=== PATIENT | male | born 1995 | race Caucasian/White ===

== ENCOUNTER 2020-01-05 14:15 | Emergency (ER) | payer MEDICAID ==
[2020-01-05] MEDS ORDERED: Bacitracin Oint 1 GM U/D Packet TOP ONE (15:01)
--- NOTE | 2020-01-05 15:03 | EDM.PDOC ---
ED HPI GENERAL MEDICAL PROBLEM - General Chief Complaint: Bite:Animal, Insect Stated Complaint: TICK BITE Time Seen by Provider: 01/05/20 14:35 Source of Information: Reports: Patient, RN History Limitations: Reports: No Limitations - History of Present Illness INITIAL COMMENTS - FREE TEXT/NARRATIVE: Keven is a 24 yo male that comes to the ER for 3 separate tick bites and a dog bite. The ticks were found 3 days ago ( afternoon) and the dog bite was monday morning. The police were notified of the dog bite. He is unsure of the dog's vaccination status. The tick bites are located on lateral left knee, lateral left chest wall, and right upper back. He has cleaned them with soap and water and peroxide at home but he is concerned with the redness surrounding the bites. Onset: Gradual Onset Date: 01/02/20 Treatments HAT BLOCK BENCH HAND: Reports: Home Treatments - Related Data Allergies Allergy/AdvReac Type Severity Reaction Status Date / Time Sulfa (Sulfonamide Allergy Hives Verified 06/05/19 02:29 Antibiotics) Home Meds: Home Meds Doxycycline [Vibramycin] 100 mg PO BID 5 Days #10 cap 01/05/20 [Rx] Past Medical History - Past Health History Medical/Surgical History: Denies Medical/Surgical History - Infectious Disease History Infectious Disease History: Reports: Chicken Pox Social & Family History - Tobacco Use Smoking Status *Q: Current Every Day Smoker Years of Tobacco use: 8 Packs/Tins Daily: 0.5 - Caffeine Use Caffeine Use: Reports: Coffee - Recreational Drug Use Recreational Drug Use: No ED ROS GENERAL - Review of Systems Review Of Systems: See Below Constitutional: Reports: No Symptoms HEENT: Reports: No Symptoms Respiratory: Reports: No Symptoms Cardiovascular: Reports: No Symptoms Endocrine: Reports: No Symptoms GI/Abdominal: Reports: No Symptoms : Reports: No Symptoms Musculoskeletal: Reports: No Symptoms Skin: Reports: Other (3 tick bites and 1 dog bite) Neurological: Reports: No Symptoms Psychiatric: Reports: No Symptoms Hematologic/Lymphatic: Reports: No Symptoms Immunologic: Reports: No Symptoms ED EXAM, ANIMAL BITE - Physical Exam Exam: See Below Exam Limited By: No Limitations General Appearance: Alert, No Apparent Distress Respiratory/Chest: Lungs Clear, Normal Breath Sounds Cardiovascular: Regular Rate, Rhythm, No Murmur Back Exam: Normal Inspection Skin Exam: Normal Color, Other (tick bite #1- lateral left knee: 6mm black center surrounded by a 2.5cm erythematous round area. #2 tick bite- left lateral chest wall: 2.5cm x 1cm oval erythematous area with scabbed center. #3 tick bite- right upper back: 1x2 cm erythematous area with dark scabbed center. Dog bite to right lateral calf: 2 x 1.3 cm erythematous area with 2 black, scabbed puncture wounds in the center. ) Course - Vital Signs Last Recorded V/S: Last Vital Signs Temp 95.9 F L 01/05/20 14:39 Pulse 72 01/05/20 14:39 Resp 16 01/05/20 14:39 BP 128/106 H 01/05/20 14:39 Pulse Ox 97 01/05/20 14:39 - Orders/Labs/Meds Meds: Medications Discontinued Medications Generic Name Dose Route Start Last Admin Trade Name Freq PRN Reason Stop Dose Admin Bacitracin 1 dose 01/05/20 15:01 01/05/20 15:09 Bacitracin Oint 1 Gm TOP 01/05/20 15:02 1 dose ONETIME ONE Administration - Re-Assessments/Exams Free Text/Narrative Re-Assessment/Exam: 01/05/20 15:15 tick bites to chest wall and back were cleansed with alcohol and partial tick parts removed with splinter forceps. Bacitracin and dressing applied to both areas. Departure - Departure Time of Disposition: 14:56 Disposition: Home, Self-Care 01 Condition: Good Clinical Impression: Tick bite of back, Tick bite of left knee, Tick bite of left side of chest wall , Dog bite of right calf - Discharge Information *PRESCRIPTION DRUG MONITORING PROGRAM REVIEWED*: Not Applicable *COPY OF PRESCRIPTION DRUG MONITORING REPORT IN PATIENT AUDI: Not Applicable Prescriptions: Doxycycline [Vibramycin] 100 mg PO BID 5 Days #10 cap Instructions: Animal Bite, Adult, [id number], Tick Bite Information, Adult, [id number] Referrals: PCP,None [Primary Care Provider] - Forms: ED Department Discharge Additional Instructions: For the dog bite, follow up with the police to determine the dog's immunization status. Soak your right leg in soapy water twice a day and pat dry. Use a topical antibiotic ointment on dog bite wound. watch closely for signs of infection (increased redness, drainage, fever). For the ticks bites, leave the dressings that were placed in the ER on until bedtime. then leave open to air. take the doxycycline 100mg twice daily for the next 5 days. Call or return to ED with any worsening of symptoms. Sepsis Event Note (ED) - Evaluation Sepsis Screening Result: No Definite Risk - Focused Exam Vital Signs: Vital Signs Temp Pulse Resp BP Pulse Ox 01/05/20 14:39 95.9 F L 72 16 128/106 H 97 01/05/20 14:31 95.9 F L 72 16 128/106 H 97 - Assessment/Plan Plan: discharge home with doxycycline coverage for tick bites. advised to closely monitor dog bite and to keep wound clean.
== END 2020-01-05 15:23 | disposition home or self-care (01) ==
LOC: JP.ED 14:15
DX: S80.262A Insect bite (nonvenomous), left knee, initial encounter (principal); S20.362A Insect bite (nonvenomous) of left front wall of thorax, initial encounter; S20.461A Insect bite (nonvenomous) of right back wall of thorax, initial encounter; S81.851A Open bite, right lower leg, initial encounter; F17.210 Nicotine dependence, cigarettes, uncomplicated; Z88.2 Allergy status to sulfonamides; W57.XXXA Bitten or stung by nonvenomous insect and other nonvenomous arthropods, initial encounter; W54.0XXA Bitten by dog, initial encounter
CPT/HCPCS: 99283

== ENCOUNTER 2021-10-20 19:55 | Emergency (ER) | payer MEDICAID ==
[2021-10-20] MEDS ORDERED: Sodium Chloride 0.9% 75 ML IV ONE (21:35)
[2021-10-20] MEDS ORDERED: Sodium Chloride 0.9% 10 ML Syringe FLUSH PRN (21:35)
[2021-10-20] MEDS ORDERED: Iopamidol 755 Mg/ML 100 ML Bottle IV SCH (21:45)
[2021-10-20] MEDS ORDERED: Ibuprofen 400 MG Tab PO ONE (22:39)
== END 2021-10-20 23:00 | disposition home or self-care (01) ==
LOC: JP.ED 19:55
DX: R09.1 Pleurisy (principal); F17.200 Nicotine dependence, unspecified, uncomplicated; Z88.2 Allergy status to sulfonamides
CPT/HCPCS: 36415; 71045; 71045-26; 71275; 80048; 80076; 83690; 84484; 85025; 85379; 85651; 93005; 93010; 99282; 99284-25; J3490; Q9967

== ENCOUNTER 2021-10-23 08:01 | Emergency (ER) | payer MEDICAID ==
[2021-10-23] MEDS ORDERED: Apixaban 5 MG Tab PO ONE (09:56)
== END 2021-10-23 10:59 | disposition home or self-care (01) ==
LOC: JP.ED 08:01
DX: I82.432 Acute embolism and thrombosis of left popliteal vein (principal); Z72.0 Tobacco use; Z88.2 Allergy status to sulfonamides; Z79.899 Other long term (current) drug therapy; Z20.822 Contact with and (suspected) exposure to COVID-19
CPT/HCPCS: 36415; 80048; 80305-QW; 85025; 86140; 93971-26-LT; 93971-LT; 99283; 99285-25; A9270-GY; U0002

== ENCOUNTER 2022-01-22 00:22 | Emergency (ER) | payer MEDICAID ==
[2022-01-22 01:07] LABS: ESTIMATED GFR 94 mL/min (>60)
[2022-01-22 01:21] LABS: TROPONIN I HIGH SENSITIVITY 8.3 pg/mL (<=60.3)
== END 2022-01-22 01:43 | disposition left against medical advice (07) ==
LOC: JP.ED 00:22
DX: R07.89 Other chest pain (principal); F17.210 Nicotine dependence, cigarettes, uncomplicated; Z20.822 Contact with and (suspected) exposure to COVID-19; Z88.2 Allergy status to sulfonamides
CPT/HCPCS: 36415; 80053; 80307; 84484; 85025; 85379; 86140; 93005; 99285; U0002

== ENCOUNTER 2022-05-21 21:53 | Emergency (ER) | payer MEDICAID | END 2022-05-21 22:35 | disposition home or self-care (01) | LOC: JP.ED 21:53 | DX: K03.81 Cracked tooth (principal); K04.7 Periapical abscess without sinus; Z88.2 Allergy status to sulfonamides; Z79.01 Long term (current) use of anticoagulants | CPT/HCPCS: 99282 ==

== ENCOUNTER 2022-07-25 20:02 | Emergency (ER) | payer MEDICAID ==
[2022-07-25 21:45] LABS: ESTIMATED GFR 104 mL/min (>60)
== END 2022-07-25 22:35 | disposition home or self-care (01) ==
LOC: JP.ED 20:02
DX: R07.89 Other chest pain (principal); Z86.718 Personal history of other venous thrombosis and embolism; Z88.2 Allergy status to sulfonamides; Z79.01 Long term (current) use of anticoagulants; Z72.0 Tobacco use; Z20.822 Contact with and (suspected) exposure to COVID-19
CPT/HCPCS: 36415; 80053; 83735; 84484; 85025; 85610; 93005; 99285; U0002

== ENCOUNTER 2023-03-19 07:36 | Emergency (ER) | payer MEDICAID | END 2023-03-19 10:00 | disposition home or self-care (01) | LOC: JP.ED 07:36 | DX: K02.9 Dental caries, unspecified (principal); Z86.718 Personal history of other venous thrombosis and embolism; Z88.0 Allergy status to penicillin; Z88.2 Allergy status to sulfonamides; Z79.01 Long term (current) use of anticoagulants; Z72.0 Tobacco use | CPT/HCPCS: 99282 ==

== ENCOUNTER 2023-05-22 17:52 | Emergency (ER) | payer MEDICAID ==
[2023-05-22] MEDS ORDERED: Sodium Chloride 0.9% 10 ML Syringe FLUSH PRN (18:17)
[2023-05-22 18:29] LABS: BASOPHILS ABSOLUTE AUTO 0.04 K/uL (0.00-0.10); BASOPHILS PERCENT AUTO 0.6 % (0.1-1.3); EOSINOPHILS PERCENT AUTO 1.4 % (0.0-5.4); HEMOGLOBIN 16.4 g/dL (12.9-16.9); IMMATURE GRAN PERCENT AUTO 0.3 % (0.0-0.7); LYMPHOCYTES ABSOLUTE AUTO 1.41 K/uL (0.8-3.3); LYMPHOCYTES PERCENT AUTO 19.8 % (11.4-47.7); MEAN CORPUSCULAR HEMOGLOBIN 31.4 pg (31.6-35.5); MEAN CORPUSCULAR HGB CONC 34.9 g/dL (31.6-35.5); MONOCYTES ABSOLUTE AUTO 0.55 K/uL (0.20-0.90); MONOCYTES PERCENT AUTO 7.7 % (3.3-12.6); NEUTROPHILS PERCENT AUTO 70.2 % (40.0-78.1); PLATELET COUNT,PLT 178 K/uL (130-375); RED BLOOD CELL COUNT 5.22 M/uL (4.14-5.76); WHITE BLOOD CELL COUNT,WBC 7.1 K/uL (3.2-11.0)
[2023-05-22 18:30] LABS: IMMATURE GRAN ABSOLUTE AUTO 0.02 K/uL (0.00-0.23)
[2023-05-22] MEDS ORDERED: Sodium Chloride 0.9% 1,000 ML IV SCH (18:30)
[2023-05-22] MEDS ORDERED: Sodium Chloride 0.9% 10 ML Syringe FLUSH ONE (18:38)
[2023-05-22] MEDS ORDERED: Iopamidol 612 MG/ML 100 ML Bottle IV SCH (18:45)
[2023-05-22] MEDS ORDERED: Sodium Chloride 0.9% 50 ML IV SCH (18:45)
[2023-05-22 18:52] LABS: ANION GAP 10.4 mmol/L (5.0-14.0); BLOOD UREA NITROGEN,BUN 12 mg/dL (7-18); CALCIUM 8.5 mg/dL (8.5-10.1); CARBON DIOXIDE,CO2 27 mmol/L (21-32); CHLORIDE,CL 104 mmol/L (100-108); ESTIMATED GFR 104 mL/min (>60); GLUCOSE RANDOM 93 mg/dL (74-106); POTASSIUM,K 3.9 mmol/L (3.6-5.2); SODIUM,NA 141 mmol/L (140-148)
[2023-05-22 18:53] LABS: TROPONIN I HIGH SENSITIVITY < 4.0 pg/mL (<=60.3)
== END 2023-05-22 20:45 | disposition home or self-care (01) ==
LOC: JP.ED 17:52
DX: R07.89 Other chest pain (principal); F17.210 Nicotine dependence, cigarettes, uncomplicated; Z88.0 Allergy status to penicillin; Z88.2 Allergy status to sulfonamides
CPT/HCPCS: 36415; 71260; 80048; 84484; 85025; 96360; 99285; J3490; J7030; Q9967

== ENCOUNTER 2024-07-01 03:32 | Emergency (ER) | payer MEDICAID ==
[2024-07-01 04:11] LABS: BASOPHILS ABSOLUTE AUTO 0.07 K/uL (0.00-0.10); BASOPHILS PERCENT AUTO 0.7 % (0.1-1.3); EOSINOPHILS ABSOLUTE AUTO 0.42 K/uL (0.00-0.40); EOSINOPHILS PERCENT AUTO 3.9 % (0.0-5.4); HEMATOCRIT 49.3 % (38.4-49.7); HEMOGLOBIN 17.6 g/dL (12.9-16.9); IMMATURE GRAN ABSOLUTE AUTO 0.04 K/uL (0.00-0.23); IMMATURE GRAN PERCENT AUTO 0.4 % (0.0-0.7); LYMPHOCYTES PERCENT AUTO 41.2 % (11.4-47.7); MEAN CORPUSCULAR HEMOGLOBIN 31.9 pg (31.6-35.5); MEAN CORPUSCULAR HGB CONC 35.7 g/dL (31.6-35.5); MEAN CORPUSCULAR VOLUME 89.5 fL (81.4-99.0); MONOCYTES ABSOLUTE AUTO 0.93 K/uL (0.20-0.90); MONOCYTES PERCENT AUTO 8.7 % (3.3-12.6); NEUTROPHILS ABSOLUTE AUTO 4.83 K/uL (1.0-7.6); NEUTROPHILS PERCENT AUTO 45.1 % (40.0-78.1); PLATELET COUNT,PLT 192 K/uL (130-375); RED BLOOD CELL COUNT 5.51 M/uL (4.14-5.76); WHITE BLOOD CELL COUNT,WBC 10.7 K/uL (3.2-11.0)
[2024-07-01 04:15] LABS: A/G RATIO 1.2 (1.2-2.2); ALANINE AMINOTRANSFERASE,ALT 33 U/L (12-78); ALBUMIN 4.3 g/dL (3.4-5.0); ALKALINE PHOSPHATASE 62 U/L (46-116); ANION GAP 14.6 mmol/L (5.0-14.0); ASPARTATE AMNIOTRANSFERASE,AST 18 U/L (15-37); BILIRUBIN TOTAL 0.3 mg/dL (0.2-1.0); BLOOD UREA NITROGEN,BUN 15 mg/dL (7-18); CALCIUM 9.2 mg/dL (8.5-10.1); CARBON DIOXIDE,CO2 25 mmol/L (21-32); CHLORIDE,CL 102 mmol/L (100-108); CREATININE 1.1 mg/dL (0.8-1.3); EST CRCL DRUG DOSING (CG) 90.52 mL/min; ESTIMATED GFR 92 mL/min (>60); GLUCOSE RANDOM 110 mg/dL (74-106); POTASSIUM,K 3.6 mmol/L (3.6-5.2); SODIUM,NA 138 mmol/L (140-148); TROPONIN I HIGH SENSITIVITY < 4.0 pg/mL (<=60.3)
== END 2024-07-01 06:02 | disposition home or self-care (01) ==
LOC: JP.ED 03:32
DX: R07.89 Other chest pain (principal); F17.210 Nicotine dependence, cigarettes, uncomplicated; Z88.0 Allergy status to penicillin; Z88.2 Allergy status to sulfonamides; Z79.01 Long term (current) use of anticoagulants
CPT/HCPCS: 36415; 80053; 84484; 85025; 85379; 93005; 93010; 99283; 99285

== ENCOUNTER 2025-01-11 16:43 | Emergency (ER) | payer MEDICAID | END 2025-01-11 20:19 | disposition home or self-care (01) | LOC: JP.ED 16:43 | DX: M79.605 Pain in left leg (principal); Z79.01 Long term (current) use of anticoagulants; Z88.2 Allergy status to sulfonamides; Z88.0 Allergy status to penicillin | CPT/HCPCS: 93971-LT; 99283 ==

== ENCOUNTER 2025-03-29 13:05 | Emergency (ER) | payer MEDICAID ==
[2025-03-29 13:23] LABS: BASOPHILS ABSOLUTE AUTO 0.04 K/uL (0.00-0.10); BASOPHILS PERCENT AUTO 0.5 % (0.1-1.3); EOSINOPHILS ABSOLUTE AUTO 0.12 K/uL (0.00-0.40); EOSINOPHILS PERCENT AUTO 1.6 % (0.0-5.4); IMMATURE GRAN ABSOLUTE AUTO 0.02 K/uL (0.00-0.23); IMMATURE GRAN PERCENT AUTO 0.3 % (0.0-0.7); LYMPHOCYTES ABSOLUTE AUTO 2.84 K/uL (0.8-3.3); LYMPHOCYTES PERCENT AUTO 36.7 % (11.4-47.7); MONOCYTES ABSOLUTE AUTO 0.80 K/uL (0.20-0.90); MONOCYTES PERCENT AUTO 10.3 % (3.3-12.6); NEUTROPHILS ABSOLUTE AUTO 3.92 K/uL (1.0-7.6); NEUTROPHILS PERCENT AUTO 50.6 % (40.0-78.1); PLATELET COUNT,PLT 154 K/uL (130-375); RED BLOOD CELL COUNT 5.06 M/uL (4.14-5.76); WHITE BLOOD CELL COUNT,WBC 7.7 K/uL (3.2-11.0)
[2025-03-29 13:33] LABS: INR 1.0
[2025-03-29 13:37] LABS: A/G RATIO 1.2 (1.2-2.2); ALANINE AMINOTRANSFERASE,ALT 53 U/L (12-78); ASPARTATE AMNIOTRANSFERASE,AST 51 U/L (15-37); BILIRUBIN TOTAL 0.9 mg/dL (0.2-1.0); BLOOD UREA NITROGEN,BUN 14 mg/dL (7-18); CARBON DIOXIDE,CO2 28 mmol/L (21-32); CHLORIDE,CL 101 mmol/L (100-108); CREATININE 1.1 mg/dL (0.8-1.3); EST CRCL DRUG DOSING (CG) 93.27 mL/min; ESTIMATED GFR 91 mL/min (>60); GLUCOSE RANDOM 89 mg/dL (74-106); POTASSIUM,K 3.4 mmol/L (3.6-5.2); PROTEIN TOTAL,TP 8.2 g/dL (6.4-8.2); SODIUM,NA 137 mmol/L (140-148)
[2025-03-29 14:49] LABS: AMPHETAMINES SCREEN, URINE NEGATIVE (NEGATIVE); METHADONE SCREEN, URINE NEGATIVE (NEGATIVE); METHAMPHETAMINES SCREEN, URINE NEGATIVE (NEGATIVE); OXYCODONE SCREEN,URINE NEGATIVE (NEGATIVE); PROPOXYPHENE SCREEN,URINE NEGATIVE (NEGATIVE); THC SCREEN,URINE 50 NG/ML NEGATIVE (NEGATIVE)
== END 2025-03-29 16:27 | disposition home or self-care (01) ==
LOC: JP.ED 13:05
DX: S00.91XA Abrasion of unspecified part of head, initial encounter (principal); Z79.01 Long term (current) use of anticoagulants; Z88.2 Allergy status to sulfonamides; Z88.1 Allergy status to other antibiotic agents; W26.8XXA Contact with other sharp object(s), not elsewhere classified, initial encounter
CPT/HCPCS: 36415; 70450; 71046; 72125; 76377; 80053; 80305; 80307; 85025; 85610; 96360; 99283; 99284; J7030